=== PATIENT | female | born 1990 | race Caucasian/White ===

== ENCOUNTER 2019-07-30 14:27 | Outpatient (CLI) | payer OTHER, SELFPAY ==
--- NOTE | ~2019-07-30 | US_ITS ---
EXAMINATION: US OB <= 14 weeks fetus EXAM DATE: 07/30/2019 15:00 INDICATION: Dating. . 1st trimester. TECHNIQUE: Pelvic obstetrical transabdominal sonogram was performed by a technologist. There are mu ltiple grayscale and Doppler images available for interpretation. There are no earlier studies of th is gestation for comparison. FINDINGS: Uterus measures 7.9 x 5.7 x 8.2 cm. There is intrauterine gestation sac. pole with heart rate confirmed at 182 beats per minute. The 2.1 cm crown-rump length corresponds to estimated gestational age by ultrasound of 8 weeks 5 days, estimated date of confinement 03/05/2020. Yolk sac is identified. There is no sonographic evidence of subchorionic hemorrhage. Right ovary is morpholo gically normal, left is not identified. IMPRESSION: Early live intrauterine gestation, age by ultrasound 8 weeks 5 days with DWAYNE 03/05/2020 Reviewed, dictated and finalized at location A. IMPRESSION: Early live intrauterine gestation, age by ultrasound 8 weeks 5 day s with DWAYNE 03/05/2020
== END 2019-07-30 14:28 | disposition home or self-care (01) ==
LOC: ANHIMG 14:32
PROVIDERS: Visit Provider Obstetrics & Gynecology
DX: Z32.01 Encounter for pregnancy test, result positive (principal); Z3A.08 8 weeks gestation of pregnancy
CPT/HCPCS: 76801

== ENCOUNTER 2019-10-02 10:22 | Outpatient (CLI) | payer OTHER, SELFPAY ==
--- NOTE | ~2019-10-02 | US_ITS ---
EXAMINATION: US OB /maternal detail DATE: 10/02/2019 12:38 INDICATION: Second trimester anatomic survey TECHNIQUE: Real-time ultrasound of the pelvis was performed. COMPARISON: None. FINDINGS: There is a single living fetus in breech presentation. The placenta is anterior. heart rate is 145 beats per minute (bpm). cardiac activity and movement are noted. The amniotic fluid index is subjectively normal. The following anatomy was identified as normal: 4 chamber heart 3 vessel cord cord insertion kidneys urinary bladder stomach spine diaphragm ventricles cisterna magna cerebellum The following biometric data were obtained: Biparietal diameter (BPD): 4.3 cm; head circumference (HC): 16.3 cm; abdominal circumference (AC): 13 .8 cm; femur length (FL): 2.6 cm. These measurements are concordant. Estimated weight is 252 g +/- 37 g, which correlates with the 90th percentile when 03/05/2020 is used as estimated date of delivery. As single measurements, these parameters are each equal to the following estimated gestational ages w ith ranges of +/- 2 standard deviations: BPD: 19 weeks 0 days +/- 1 weeks 5 days. HC: 19 weeks 1 days +/- 1 weeks 3 days. AC: 19 weeks 2 days +/- 2 weeks 0 days. FL: 17 weeks 6 days +/- 1 weeks 3 days. estimated gestational age based solely on measurements from this exam is 18 weeks 6 days +/- 1 weeks 2 days. IMPRESSION: 1. Single living fetus in breech presentation. 2. Estimated weight is 252 g +/- 37 g, which correlates with the 90th percentile when 03/05/2020 is used as estimated date of delivery. Reviewed, dictated and finalized at location A. IMPRESSION: 1. Single living fetus in breech presentation. 2. Estimated weight is 252 g +/- 37 g, which correlates with the 90th per centile when 03/05/2020 is used as estimated date of delivery.
== END 2019-10-02 10:23 | disposition home or self-care (01) ==
PROVIDERS: Visit Provider Obstetrics & Gynecology
DX: Z34.02 Encounter for supervision of normal first pregnancy, second trimester (principal); Z3A.18 18 weeks gestation of pregnancy
CPT/HCPCS: 76805

== ENCOUNTER 2019-12-06 14:05 | Outpatient (RCR) | payer OTHER, SELFPAY ==
[2019-12-06 15:57] LABS: Hematocrit 36.2 % (37.0-47.0); Hemoglobin 12.2 g/dL (12.0-15.0)
[2019-12-06 16:07] LABS: Glucose 1 Hour PP 50gm Dose 192 mg/dL
[2019-12-06 16:48] LABS: HIV 1/2 Ab P24 Ag Result Negative (Negative)
[2019-12-06 17:22] LABS: Vitamin D 25 Hydroxy 58.1 ng/mL
[2019-12-07] MEDS: RHO(D) IMMUNE GLOBULIN 300 MCG SYRINGE IM (10:34)
== END 2020-03-05 23:59 | disposition home or self-care (01) ==
LOC: ANHLAB 14:05
PROVIDERS: PCP Obstetrics & Gynecology; Visit Provider Obstetrics & Gynecology
DX: Z29.13 Encounter for prophylactic Rho(D) immune globulin (principal); Z11.4 Encounter for screening for human immunodeficiency virus [HIV]; O36.0920 Maternal care for other rhesus isoimmunization, second trimester, not applicable or unspecified; Z3A.00 Weeks of gestation of pregnancy not specified
CPT/HCPCS: 36415; 82306; 82947; 85014; 85018; 85461; 86703; 90384; 96372; G0432; J2790

== ENCOUNTER 2019-12-16 15:16 | Outpatient (CLI) | payer OTHER, SELFPAY ==
--- NOTE | ~2019-12-16 | US_ITS ---
EXAMINATION: US OB follow up EXAM DATE: 12/16/2019 16:04 INDICATION: Growth , PIERO . Size greater than dates. 3rd trimester. TECHNIQUE: Pelvic obstetrical transabdominal sonogram was performed by a technologist. There are mu ltiple grayscale and Doppler images available for interpretation. Comparison is made to prior examina tion from 10/02/2019. FINDINGS: There is a single fetus identified in vertex presentation with a heart rate of 154 beats pe r minute. The placenta is located in the anterior fundal position. There is no sonographic evidence of retroplacental hemorrhage identified. The amniotic fluid index is 18.0 centimeters, which is denae l. BIOMETRIC DATA: Head circumference (HC): 27.8 cm ----------------> 30 weeks 3 days. Abdominal circumference (AC): 26.3 cm ----------> 30 weeks 3 days. Femur length (FL): 5.4 cm --------------------------> 28 weeks 4 days. These measurements are concordant. HC/AC ratio is 1.06 (The 5th -- 95th percentile range is 0.98-1.19. Estimated weight is 1458 g +/- 219 g. This is the 82nd percentile when the currently reported clinical gestation age 28 weeks 4 days, clinical estimated date of delivery (DWAYNE-OPE) 03/05/2020 is use d. estimated gestational age based on measurements from this exam is 29 weeks 6 days, with an e stimated date of delivery (DWAYNE-AUA) 02/25/2020. IMPRESSION: 1. Single fetus in vertex presentation with heart rate 154 beats per minute. 2. Estimated weight of 1458 grams, 82nd percentile using the currently reported clinical gesta tion age of 20 weeks 4 days, DWAYNE(OPE) 03/05. 3. Normal PIERO 18 cm. Reviewed, dictated and finalized at location A. IMPRESSION: 1. Single fetus in vertex presentation with heart rate 154 beats per minute. 2. Estimated weight of 1458 grams, 82nd percentile using the currently r eported clinical gestation age of 20 weeks 4 days, DWAYNE(OPE) 03/05. 3. Normal PIERO 18 cm.
== END 2019-12-16 15:17 | disposition home or self-care (01) ==
PROVIDERS: Visit Provider Obstetrics & Gynecology Gynecology
DX: O36.62X0 Maternal care for excessive fetal growth, second trimester, not applicable or unspecified (principal); Z3A.20 20 weeks gestation of pregnancy
CPT/HCPCS: 76816

== ENCOUNTER → 2020-02-07 15:24 | Outpatient (CLI) | payer OTHER, SELFPAY ==
--- NOTE | ~2020-02-07 | US_ITS ---
EXAMINATION: US OB follow up DATE: 02/07/2020 15:47 INDICATION: Size greater than dates during third trimester TECHNIQUE: Real-time ultrasound of the pelvis was performed. The interpreting radiologist was not pre sent for the study. COMPARISON: 12/16/2019 FINDINGS: There is a single living fetus in vertex presentation. The placenta is anterior. card iac activity and movement are noted. heart rate is 151 beats per minute (bpm). The amniot ic fluid index is 22.9 cm which is normal. The following biometric data were obtained: Biparietal diameter (BPD): 9.7 cm; head circumference (HC): 34.6 cm; abdominal circumference (AC): 33 .7 cm; femur length (FL): 7.3 cm. These measurements are concordant. Estimated weight is 3428 g +/- 514 g, which correlates with the 95th percentile when 03/05/2020 i s used as estimated date of delivery. As single measurements, these parameters are each equal to the following estimated gestational ages w ith ranges of +/- 2 standard deviations: BPD: 39 weeks 6 days ( 36 weeks 5 days - 43 weeks 1 days). HC: 40 weeks 1 days ( 37 weeks 3 days - 42 weeks 6 days). AC: 37 weeks 5 days ( 34 weeks 4 days - 40 weeks 5 days). FL: 37 weeks 5 days ( 34 weeks 4 days - 40 weeks 6 days). estimated gestational age based solely on measurements from this exam is 38 weeks 6 days +/- 2 weeks 5 days. IMPRESSION: 1. Single living fetus in vertex presentation. 2. Normal amniotic fluid index. 3. Estimated weight is 3428 g +/- 514 g, which correlates with the 95th percentile when 1 is used as estimated date of delivery. Reviewed, dictated and finalized at location A. [employer] IMPRESSION: 1. Single living fetus in vertex presentation. 2. Normal amniotic fluid index. 3. Estimated weight is 3428 g +/- 514 g, which correlates with the 95th p ercentile when 03/05/2020 is used as estimated date of delivery.
== END ==
PROVIDERS: Visit Provider Obstetrics & Gynecology
DX: O36.63X0 Maternal care for excessive fetal growth, third trimester, not applicable or unspecified (principal); Z3A.38 38 weeks gestation of pregnancy
CPT/HCPCS: 76816

== ENCOUNTER 2020-02-16 12:44 | Outpatient (RCR) | payer OTHER, SELFPAY ==
[2020-01-23 09:36] VITALS: BP 121/78; PULSE 92
[2020-02-16 13:14] VITALS: BP 116/76; PULSE 78
== END 2020-03-02 07:53 | disposition home or self-care (01) ==
LOC: ANHOBOP 12:44
PROVIDERS: Visit Provider Obstetrics & Gynecology
DX: O24.419 Gestational diabetes mellitus in pregnancy, unspecified control (principal); Z3A.34 34 weeks gestation of pregnancy; Z3A.37 37 weeks gestation of pregnancy
CPT/HCPCS: 59025

== ENCOUNTER 2020-02-27 06:00 | Inpatient (IN) | payer OTHER, SELFPAY ==
[2020-02-27] VITALS (92 sets, daily range): BP systolic 114–157; BP diastolic 62–122; PULSE 31–140; RESP 18; TEMP 36.4–37; O2SAT 72–100; BMI 33.2
--- NOTE | 2020-02-27 06:00 | LDADM ---
This patient, Karen Perez, was admitted to Labor/Delivery/Recovery 104 on 02/27/20 at 06:00. Plans for labor, pain management and were discussed with patient. Patient/family oriented to hospital policies and general routines including ID bracelet, bed and alarms, visiting hours, pain management, procedures, bathroom and other care routines, personal items, smoking policy, room service/diet and guest tray routines, infant security routines, and visiting hours. Patient/Family are encouraged to report perceived risks to care and to ask questions if they do not understand what they are told or what they should do. See OBIX for further documentation.
[2020-02-27 06:44] LABS: Basophils Percent Auto 0.3 % (0.2-1.2); Eosinophils Absolute Auto 0.2 K/mm3 (0-0.3); Eosinophils Percent Auto 1.3 % (0-4.4); Hematocrit 37.3 % (37.0-47.0); Hemoglobin 13.1 g/dL (12.0-15.0); Immature Granulocyte Absolute 0.05 K/mm3 (0.00-0.031); Immature Granulocyte Percent A 0.4 % (0-0.5); Lymphocytes Percent Auto 22.2 % (18.3-44.2); Mean Corpuscular HGB Conc 35.1 g/dl (32-36); Mean Corpuscular Volume 85.4 fl (80-100); Mean Platelet Volume 10.2 fl (7.4-10.4); Monocytes Absolute Auto 0.8 K/mm3 (0.1-0.6); Monocytes Percent Auto 6.7 % (2.6-8.5); Neutrophils Absolute Auto 8.1 K/mm3 (1.3-6.7); Neutrophils Percent Auto 69.1 % (45.5-73.1); Platelet Count Result 280 k/mm3 (150-375); Red Blood Count 4.37 M/mm3 (4.2-5.4); Red Cell Distribution Width 13.4 % (11.5-14.5); White Blood Count 11.7 K/mm3 (4.5-10.0)
[2020-02-27] MEDS: LACTATED RINGERS 1,000 ML 125 ML IV CONT ×2 (06:53→11:00)
[2020-02-27] MEDS: OXYTOCIN 30 UNITS/NS 500 ML 30 UNITS/500 ML BAG 6 UNITS IV CONT (06:54)
--- NOTE | 2020-02-27 07:06 | P.PNAN_ITS ---
Anes - Eval Pre Procedure Procedure: labor epidural Date/Time: 02/27/20 07:06 Preop Diagnosis: labor pain Pre Op Diagnosis: Induction of Labor Patient Data Age: 29 Gender: F Height: 5 ft 8 in Weight: 99 kg Last Vital Signs Temp 36.6 C 02/27/20 06:30 Pulse 93 02/27/20 07:00 BP 126/85 02/27/20 07:00 Allergies Allergy/AdvReac Type Severity Reaction Status Date / Time No Known Allergies Allergy Verified 02/03/20 14:29 Home Medications Medication Instructions Recorded Confirmed Type PNV cmb#95-ferrous fumarate-FA 1 tablet PO DAILY 02/03/20 02/27/20 History [] ergocalciferol (vitamin D2) 1,250 mcg PO 2XW 02/03/20 02/27/20 History [Vitamin D2] insulin NPH isoph U-100 human 6 unit SUBCUT HS 02/03/20 02/27/20 History [Humulin N NPH U-100 Insulin] Laboratory Tests 02/27/20 02/27/20 06:32 06:32 WBC 11.7 K/mm3 H K/mm3 (4.5-10.0) RBC 4.37 M/mm3 M/mm3 (4.2-5.4) Hgb 13.1 g/dL g/dL (12.0-15.0) Hct 37.3 % % (37.0-47.0) MCV 85.4 fl fl (80-100) MCH 30.0 pg pg (26-34) MCHC 35.1 g/dl g/dl (32-36) RDW 13.4 % % (11.5-14.5) Plt Count 280 k/mm3 k/mm3 (150-375) MPV 10.2 fl fl (7.4-10.4) Immature Gran % (Auto) 0.4 % % (0-0.5) Neut % (Auto) 69.1 % % (45.5-73.1) Lymph % (Auto) 22.2 % % (18.3-44.2) [place] % (Auto) 6.7 % % (2.6-8.5) Eos % (Auto) 1.3 % % (0-4.4) Baso % (Auto) 0.3 % % (0.2-1.2) Lymph # (Auto) 2.60 K/mm3 K/mm3 (0.9-3.2) [place] # (Auto) 0.8 K/mm3 H K/mm3 (0.1-0.6) Eos # (Auto) 0.2 K/mm3 K/mm3 (0-0.3) Baso # (Auto) 0.0 K/mm3 K/mm3 (0.0-0.1) Abs Immat Gran (auto) 0.05 K/mm3 H K/mm3 (0.00-0.031) Absolute Neuts (auto) 8.1 K/mm3 H K/mm3 (1.3-6.7) Absolute Nucleated RBC 0.0 K/mm3 K/mm3 (0.0-0.012) Nucleated RBC % 0.0 % % (0.0-0.2) RPR Pending Patient hx anesthesia problems: none Family hx anesthesia problems: none PMFSH Family History Family History (Updated 02/03/20 @ 14:32 by Delfina Calvin RN) Father Heart attack Mother Cervical cancer Social History Social History Smoking status: Never smoker Substance use: never Gender identity (if verbalized by the patient): Female Spiritual care concerns: No Exam Day of Procedure 02/27/20 07:06
[2020-02-27 09:12] LABS: Glucose Point of Care 76 (65-105)
--- NOTE | 2020-02-27 09:59 | WPDOBADMIT ---
Obstetrics - Admit Note Admission Note: 0815 AROm clear fluid 1-2 cm record reviewed. No pertinent additions to the history and/or any subsequent changes in the physical findings that are not consistent with the expected course of the were found. Additions to the history and/or subsequent changes in the physical findings follow. None.
[2020-02-27 11:13] LABS: Rapid Plasma Reagin Non-Reactive (NonReactive)
[2020-02-27 11:38] LABS: Glucose Point of Care 78 (65-105)
[2020-02-27 13:00] LABS: Glucose Point of Care 54 (65-105)
[2020-02-27] MEDS: OXYTOCIN 30 UNITS/NS 500 ML 30 UNITS/500 ML BAG 125 UNITS IV CONT (15:11)
[2020-02-27] MEDS: IBUPROFEN 600 MG TABLET PO (16:29)
[2020-02-27] MEDS: BENZOCAINE 20% AER SPR (*SP) 56 GM CAN 1 SPRAY TOPICAL (16:30)
[2020-02-27] MEDS: WITCH HAZEL 40 PADS 1 PAD TOPICAL (16:30)
[2020-02-27] MEDS: LANOLIN (LANSINOH) 7.5 GM CREAM 1 APPLIC TOPICAL (16:30)
--- NOTE | 2020-02-27 17:30 | PC.NURSE ---
Patient transferred to post room #286 per wheelchair from labor and delivery. Support person present. Oriented to unit, room, information board, rooming in, admission packet and security measures. Patient verbalizes understanding.
[2020-02-28 05:30] LABS: Hematocrit 32.3 % (37.0-47.0); Hemoglobin 11.1 g/dL (12.0-15.0)
--- NOTE | 2020-02-28 07:45 | PC.NURSE ---
Patient instructed to view the discharge video Mother & Baby Care, The First Two Weeks . Patient was given the opportunity and encouraged to ask questions. Patient verbalized understanding of information shared and has been given the mother/baby guide for home reference.
[2020-02-28] MEDS: DOCUSATE SODIUM 100 MG CAPSULE PO (07:48)
[2020-02-28] MEDS: MULTIVIT/MIN/PREN/FOL AC/IRON TABLET 1 TAB PO (07:48)
[2020-02-28] MEDS: IBUPROFEN 600 MG TABLET PO (07:48)
[2020-02-28 08:10] VITALS: BP 128/80; PULSE 87; RESP 18; TEMP 36.4
--- NOTE | 2020-02-28 09:44 | PM.OBPNVD ---
OB - PN: Subj Subjective Date/time seen: 02/28/20 09:44 Patient comments: no complaints and pain well controlled baby status: doing well OB - PN: Obj Data Labs CBC & Chem 7: 02/28/20 05:02 Labs: Laboratory Results - last 24 hr 02/27/20 02/27/20 02/27/20 06:32 06:32 11:06 Hgb Hct POC Capillary Glucose 78 RPR Non-reactive Antibody Identification Inconclusive Antigen Identification Cancelled ELIGIO, Complement Interp Not Performed 02/27/20 02/28/20 12:54 05:02 Hgb 11.1 L Hct 32.3 L POC Capillary Glucose 54 L* RPR Antibody Identification Antigen Identification ELIGIO, Complement Interp OB - PN A/P Plan day: 1 Plan: routine care, discharge home and follow up 6 weeks Comments: plan micronor until Mirena Time Spent With Patient Time: Total time spent is greater than 50% in coordination of care (as documented) at patient's floor/unit and/or counseling patient: Exam : Bimanual exam- vagina & uterus: other (Uterus firm, nt @U)
--- NOTE | 2020-02-28 10:38 | WPDANLDPN2 ---
Anes-Prog Note L&D Date/Time: 02/28/20 10:38 Comfortable throughout: labor and delivery Neuraxial method: epidural Epidural/Spinal procedure site: clean & non-tender Neuro status: Neuro function grossly intact. Cardiovascular status: normal Respiratory status: normal Airway patency: baseline Mental status: baseline Post-Op hydration status: normal Vital Signs: Last Vital Signs Temp 36.4 C 02/27/20 20:00 Pulse 78 02/27/20 20:00 Resp 18 02/27/20 20:00 BP 132/86 02/27/20 20:00 Pulse Ox 98 02/27/20 20:00 Pain score (VAS): 0 I/O: Intake & Output 02/27/20 02/28/20 02/28/20 23:59 07:59 15:59 Intake Total 300 Output Total 84 Balance 216 Post-procedural complaints: none Patient feedback: Patient satisfied with anesthetic care.
[2020-02-29 15:05] VITALS: BP 126/80; PULSE 90; RESP 15; TEMP 36.8; O2SAT 100
--- NOTE | 2020-03-09 08:29 | PM.OBPRVD ---
OB - Delivery Note Procedure Delivery date: 02/27/20 Procedure: events: Labor Induction Intrapartal events: None Induction method: AROM and per pitocin protocol Delivery monitor: external FHT and external uterine Route of delivery: Laceration Description: Perineal - 2nd Degree Delivery repair: vicryl Quantitative Blood Loss (ml): 200 Anesthesia type: Epidural Disposition: floor [place] Baby Date of : 02/27/20 Time of : 00:50 Weeks of gestation at delivery: 39 Infant gender: Male Weight (pounds): 8 Weight (ounces): 5 presentation: vertex position: Left Occiput Anterior Placenta delivery description: Spontaneous cord vessel description: 3 Vessels score one minute: 9 score five minutes: 9
--- NOTE | 2020-03-09 08:31 | PM.OBDSVD ---
DS: Admitting Diagnosis Admitting Diagnosis Admitting Diagnosis: induction of labor DS: Discharge Diagnosis Discharge Diagnosis (1) (normal spontaneous vaginal delivery): Code(s): O80 - Encounter for full-term uncomplicated delivery Status: Acute OB - DS: Summary OB Procedures : Ultrasound OB Procedures Intrapartum: Spontaneous Vag Delivery OB Procedures: : None Time Spent with Patient Time attestation: Total time spent providing and/or coordinating discharge services: DS: Data Data Completed and Pending Completed studies during hospitalization: Pending at discharge 02/27/20 14:43 Surgical [PTH] Routine Discharge Plan Discharge Attending physician on discharge: Ian Montenegro Discharging Clinician: Ian Montenegro Anticipated Discharge Date/Time: 02/28/20 09:46 Patient Disposition: Home, Self-Care Activity: may shower and pelvic rest Diet: regular Discharge Instructions: Education: Mom and Baby Guide, Preeclampsia Handout, and discharge video info Given to: Mother Follow-Up: Call your delivering provider's office for an appointment to be seen in: 6 Weeks Mom and baby should come to the [facility] for the follow-up appointment. Appointment Date/Time: February 29, 2020 at 2:30 pm What to expect at your follow-up visit: Physical Assessment Call [phone] if you are unable to keep your appointment time. BREAST CARE: * Wear a snug supportive bra. * For engorgement discomfort: Breast Feeding: * Apply warm moist washcloths * Express milk as needed to relieve engorgement * Wear loose clothing * For sore nipples: * Identify correct latch-on * Apply warm moist washcloths before and after nursing * Air dry nipples after nursing * May apply Lansinoh cream to nipples EPISIOTOMY/PERINEAL CARE: * Until bleeding stops, use your horacio bottle after urinating * Change your pad frequently throughout the day * You may take sitz baths several times a day (fill your bathtub with warm water and soak for 20 minutes.) Do NOT bathe in the water * No tub baths until seen by your physician - You may shower ACTIVITY: * Rest as much as possible. * Do not exercise or lift anything heavier than your baby (such as laundry or other children.) * Avoid stairs or driving as much as possible. * Do not put anything into the vagina. No douching, tampons, or sexual activity until seen by physician. NOTIFY PHYSICIAN IF YOU HAVE ANY QUESTIONS OR IF ANY OF THE FOLLOWING SYMPTOMS OCCUR: * If your episiotomy or incision becomes red, swollen, or more painful than what you have experienced in the hospital. * If your vaginal bleeding becomes foul smelling. * If your vaginal bleeding becomes more heavy than a period or if your bleeding changes from pink to bright red. However, you may pass an occasional walnut-sized clot once or twice for the first week . * If you experience a sharp, shooting pain in you calves. * If you discover a hard, reddened area on your breast or if you experience flu-like symptoms. DIET: * Eat regular, well-balanced meals. * Drink plenty of fluids daily. If , drink to thirst. Stand Alone Forms: General Discharge Information Follow-up/Referrals: Ian Montenegro MD [Physician] - 6 Weeks Discharge Medications: New norethindrone (contraceptive) 0.35 mg tablet 0.35 mg PO DAILY Qty: 28 RF: 1 Continued ergocalciferol (vitamin D2) [Vitamin D2] 1,250 mcg (50,000 unit) Capsule 1,250 mcg PO 2XW RF: 0 PNV cmb#95-ferrous fumarate-FA [] 28 mg iron- 800 mcg Tablet 1 tablet PO DAILY RF: 0 Discontinued Humulin N NPH U-100 Insulin 100 unit/mL Suspension 6 unit SUBCUT HS RF: 0 Date of admission: 02/27/20 06:00 Primary Care Provider: PHYSICIAN,[employer] CLAIMS ADJUSTER Admitting Provider: Ian Montenegro Attending physi
== END 2020-02-28 17:52 | disposition home or self-care (01) | DRG 807 ==
LOC: ANHOB2 02-28 09:47 → ANHLDR 03-03 10:05 → ANHOB2 03-03 10:05
PROVIDERS: Admitting Provider Obstetrics & Gynecology; Visit Provider Obstetrics & Gynecology Gynecology
DX: O24.429 Gestational diabetes mellitus in childbirth, unspecified control (principal); Z37.0 Single live birth; O76 Abnormality in fetal heart rate and rhythm complicating labor and delivery; O70.1 Second degree perineal laceration during delivery; Z3A.39 39 weeks gestation of pregnancy
CPT/HCPCS: 36415; 85014; 85018; 85025; 86592; 86850; 86880; 86900; 86901; 88307; A9270; J2590; J2795; J7120

== ENCOUNTER 2021-04-09 12:14 | Emergency (ER) | payer OTHER, SELFPAY ==
[2021-04-09 12:29] VITALS: BP 134/94; PULSE 98; RESP 18; TEMP 36.7; O2SAT 100
--- NOTE | 2021-04-09 12:34 | ED.EAR ---
HPI - Ear Problem General Chief complaint: Ear Stated complaint: Sinus,Lt Ear Irritation Time Seen by Provider: 04/09/21 12:34 Source: patient Mode of arrival: ambulatory Limitations: no limitations History of Present Illness HPI Narrative: Karen Perez is a 30 yo female with no PMH who has had respiratory symptoms for the last week or so with pain in her left ear no fever no nausea vomiting or diarrhea Related Data Home Medications Medication Instructions Recorded Confirmed ergocalciferol (vitamin D2) 1,250 mcg PO 2XW 02/03/20 04/09/21 [Vitamin D2] levonorgestrel [Mirena] See Rx Instructions .ROUTE .COMPLEX 04/09/21 04/09/21 Allergies Allergy/AdvReac Type Severity Reaction Status Date / Time No Known Allergies Allergy Verified 04/09/21 12:17 Review of Systems Review of Systems: CONSTITUTIONAL: Denies fever, chills, sweats. EYES: Denies visual changes, redness, discharge. ENT: Denies rhinorrhea, mild congestion, sore throat, left otalgia. CARDIOVASCULAR: Denies chest pain, palpitations, edema. RESPIRATORY: Denies dyspnea, wheezing, cough GASTROINTESTINAL: Denies abdominal pain, nausea, vomiting, diarrhea. GENITOURINARY: Denies dysuria, hematuria, abnormal discharge SKIN: Denies rash or itching. NEUROLOGIC: Denies numbness, or focal weakness. PSYCHIATRIC: Denies anxiety or depression. PMFSH Past Medical History Medical History (normal spontaneous vaginal delivery) Family History Family History Father Heart attack Mother Cervical cancer Social History Social History Smoking status: Never smoker Substance use: never Gender identity (if verbalized by the patient): Female Spiritual care concerns: No Comments At time of signature, I agree with nursing past medical, surgical, social and family history. There is no relevant family history pertinent to the presenting complaint. Patient's blood pressure elevated at this visit should follow-up with PCP Exam Narrative: GENERAL: This is a well-nourished, well-developed patient, in mild distress. HEAD: normocephalic, atraumatic. EYES: PERRL. Sclera clear/white. Vision is grossly intact. EARS: External ears normal, auditory canals leftand with drainage, TMs normal without perforation. Hearing grossly intact. NOSE: External nose normal without nasal discharge, nares without redness, as rhinorrhea. THROAT: Mucous membranes moist, posterior pharynx mild erythema NECK: Neck supple, non-tender CARDIOVASCULAR: Regular rate and rhythm without murmurs, gallops, or rubs. RESPIRATORY: Clear to auscultation. Breath sounds equal bilaterally. No wheezes, rales, or rhonchi. GASTROINTESTINAL: Not done SKIN: warm, intact with no suspicious lesions or rash, good texture and turgor. NEURO: awake, alert, and oriented to person, place and time. There were no obvious focal neurologic abnormalities. Steady gait EXTREMITIES: Normal range of motion. BACK: Nontender without deformity Course Course Emergency Course: Patient here with runny nose and left ear pain going on for couple days Because of the appearance of her ear she started on polymyxin eardrops and also amoxicillin 875 twice daily Level of Care: Express Care Visit Vital Signs Vital signs: Vital Signs Temperature 98.1 F 04/09/21 12:29 Pulse Rate 98 04/09/21 12:29 Respiratory Rate 18 04/09/21 12:29 Blood Pressure 134/94 H 04/09/21 12:29 Pulse Oximetry 100 04/09/21 12:29 Temperature 98.1 F 04/09/21 12:29 Pulse Rate 98 04/09/21 12:29 Respiratory Rate 18 04/09/21 12:29 Blood Pressure 134/94 H 04/09/21 12:29 Pulse Oximetry 100 04/09/21 12:29 Medical Decision Making Differential Diagnosis Differential Diagnosis: Otitis media versus pharyngitis versus viral syndrome Vital Signs Vital Signs: Vital
== END 2021-04-09 12:58 | disposition home or self-care (01) ==
PROVIDERS: Emergency Provider Nurse Practitioner
DX: H65.02 Acute serous otitis media, left ear (principal)
CPT/HCPCS: 99213; G0463

== ENCOUNTER 2021-07-27 10:42 | Emergency (ER) | payer OTHER, SELFPAY ==
[2021-07-27 10:53] VITALS: BP 133/91; PULSE 90; RESP 18; TEMP 36.3; O2SAT 100
--- NOTE | 2021-07-27 11:09 | ED.EAR ---
HPI - Ear Problem General Chief complaint: Ear Stated complaint: Rt Ear Irritation Time Seen by Provider: 07/27/21 11:19 Source: patient and RN notes reviewed Mode of arrival: ambulatory Limitations: no limitations History of Present Illness HPI Narrative: 31-year-old female presents with concern for right ear pain. She reports symptoms started 4 days ago, she has noticed drainage on her pillow. She reports her pain occasionally radiates to the jaw. She denies rhinorrhea, nasal congestion, sore throat, fever, body aches, chills, sweats, cough. Reports she had an ear infection in March in the left ear. MD Complaint: ear pain Related Data Home Medications Medication Instructions Recorded Confirmed levonorgestrel 20 mcg/24 hours (7 See Rx Instructions .Route .COMPLEX 04/09/21 07/27/21 yrs) 52 mg intrauterine device (Mirena) Allergies Allergy/AdvReac Type Severity Reaction Status Date / Time No Known Allergies Allergy Verified 07/27/21 11:18 Review of Systems Review of Systems: CONSTITUTIONAL: Denies malaise, chills, sweats, or fever. EYES: Denies visual changes, redness, or discharge. ENT: Denies rhinorrhea, congestion, sinus pain, and sore throat. Reports right ear pain and drainage CARDIOVASCULAR: Denies chest pain, palpitations, or edema. RESPIRATORY: Denies cough. Denies dyspnea. GASTROINTESTINAL: Denies abdominal pain, nausea, vomiting, diarrhea SKIN: Denies rash or itching. MUSCULOSKELETAL: Denies myalgia. NEUROLOGIC: Denies headache. All systems reviewed & are unremarkable except as noted in HPI and below PMFSH Past Medical History Medical History (normal spontaneous vaginal delivery) Family History Family History Father Heart attack Mother Cervical cancer Social History Social History Smoking status: Never smoker Substance use: never Gender identity (if verbalized by the patient): Female Spiritual care concerns: No Comments At time of signature, agree with nursing past medical, surgical, social and family history. There is no relevant family history pertinent to the presenting complaint Exam Narrative: GENERAL: Well-appearing, well-nourished, and in no acute distress. HEAD: Normocephalic EYES: PERRLA, conjunctivae clear ENT: Nares clear, turbinates edematous, clear discharge. Mucous membranes moist. TM pearly corona with sharp light reflex bilaterally; right tragal tenderness with EAC erythema, edema, yellow discharge. NECK: Supple. No lymphadenopathy CHEST: Clear to auscultation, breath sounds equal. No wheezing, rhonchi, rales, or stridor. No respiratory distress, speaks in full sentences. HEART: Regular rate and rhythm. No murmur heard. SKIN: Warm, dry, no rash. NEURO: Alert and oriented x3. PSYCH: Normal mood and affect Course Course Emergency Course: Patient is aware of diagnosis, understands and agrees to treatment plan. Anticipatory guidance given. Patient agrees to follow-up as directed and is aware of reasons to seek care at the emergency department. Portions of this record may have been created with voice recognition software Level of Care: Express Care Visit Vital Signs Vital signs: Vital Signs Temperature 97.4 F L 07/27/21 10:53 Pulse Rate 90 07/27/21 10:53 Respiratory Rate 18 07/27/21 10:53 Blood Pressure 133/91 H 07/27/21 10:53 Pulse Oximetry 100 07/27/21 10:53 Oxygen Delivery Room Air 07/27/21 10:53 Temperature 97.4 F L 07/27/21 10:53 Pulse Rate 90 07/27/21 10:53 Respiratory Rate 18 07/27/21 10:53 Blood Pressure 133/91 H 07/27/21 10:53 Pulse Oximetry 100 07/27/21 10:53 Oxygen Delivery Room Air 07/27/21 10:53 Reviewed. Medical Decision Making MDM Narrative Medical decision making narrative: Differential diagnosis considered: Fishman virus
== END 2021-07-27 11:36 | disposition home or self-care (01) ==
PROVIDERS: Emergency Provider Nurse Practitioner
DX: H60.91 Unspecified otitis externa, right ear (principal)
CPT/HCPCS: 99213; G0463

== ENCOUNTER 2022-05-12 08:32 | Emergency (ER) | payer OTHER, SELFPAY ==
[2022-05-12 08:47] VITALS: BP 124/87; PULSE 115; RESP 14; TEMP 36.3; O2SAT 100
--- NOTE | 2022-05-12 08:50 | ED.URI ---
HPI - URI/Sore Throat General Chief Complaint: Upper Respiratory Infection Stated Complaint: Sore Throat,Body Aches Time Seen by Provider: 05/12/22 08:50 Source: patient, RN notes reviewed and old records reviewed Mode of arrival: ambulatory Limitations: no limitations History of Present Illness HPI Narrative: 31 year old female who presents to doctors hospital care with complaints of sore throat, chills,sinus drainage and decreased appetite since Monday. She reports that she has had some dry cough for about 2 week duration also. Patient reports that she has not had any known fevers, had taken some Me[place] cold and flu medication OTC for her symptoms. Patient reports that she has had COVID immunizations and also flu shot. Patient reports no known ill contacts. MD elicited complaint: cough and sore throat Onset (ago): day(s) (day 3 of symptoms) Pain scale (0-10): 3 Able to tolerate fluids by mouth: Yes Exacerbating factors: swallowing Treatments prior to arrival: other (melina seltzer cold and flu) Related Data Home Medications Medication Instructions Recorded Confirmed levonorgestrel 21 mcg/24 hours (8 See Rx Instructions .Route .COMPLEX 04/09/21 05/12/22 yrs) 52 mg intrauterine device (Mirena) Allergies Allergy/AdvReac Type Severity Reaction Status Date / Time No Known Allergies Allergy Verified 05/12/22 08:57 Review of Systems Review of Systems: CONSTITUTIONAL: Reports malaise, chills, sweats, no known fever. EYES: Denies visual changes, redness, or discharge. ENT: Reports rhinorrhea, congestion,no sinus pain,fullness to ears, positive sore throat. CARDIOVASCULAR: Denies chest pain, palpitations, or edema. RESPIRATORY: Reports dry cough.? Denies dyspnea. GASTROINTESTINAL: Denies abdominal pain, nausea, vomiting, diarrhea SKIN: Denies rash or itching. MUSCULOSKELETAL: Reports myalgia. NEUROLOGIC: Denies headache. All systems reviewed & are unremarkable except as noted in HPI and below PMFSH Past Medical History Medical History (normal spontaneous vaginal delivery) Family History Family History Father Heart attack Mother Cervical cancer Social History Social History Smoking status: Never smoker Substance use: never Gender identity (if verbalized by the patient): Female Spiritual care concerns: No Comments At time of signature, agree with nursing past medical, surgical, social and family history. There is no relevant family history pertinent to the presenting complaint Exam Narrative: GENERAL: Well-appearing, well-nourished, and in no acute distress. HEAD: Normocephalic EYES: PERRLA, conjunctivae clear ENT: Nares clear, turbinates edematous and erythematous, clear discharge. Mucous membranes moist. TM pearly corona with dull light reflex bilaterally; no tragal tenderness. Oropharynx erythematous without lesions. Tonsils red enlarged and without exudate, no drooling, no hoarseness, no trismus, uvula midline. NECK: Supple. lymphadenopathy CHEST: Clear to auscultation, breath sounds equal. No wheezing, rhonchi, rales, or stridor. No respiratory distress, speaks in full sentences. dry cough, SAO2 100% on room air HEART: Regular rate and rhythm. No murmur heard. SKIN: Warm, dry, no rash. NEURO: Alert and oriented x3. PSYCH: Normal mood and affect Course Course Emergency Course: Patient is aware of diagnosis, understands and agrees to treatment plan.? Anticipatory guidance given.? Patient agrees to follow-up as directed and is aware of reasons to seek care at the emergency department. Portions of this record may have been created with voice recognition software Level of Care: Express Care Visit Vital Signs Vital signs: Vital Signs Temperature 36.3 C L 05/12/22 08:47 Pulse Rate 115 H
== END 2022-05-12 09:10 | disposition home or self-care (01) ==
PROVIDERS: Emergency Provider Registered Nurse
DX: J02.9 Acute pharyngitis, unspecified (principal); Z20.822 Contact with and (suspected) exposure to COVID-19
CPT/HCPCS: 87426; 87880; 99213; C9803; G0463

== ENCOUNTER → 2023-03-23 13:40 | Outpatient (CLI) | payer OTHER, SELFPAY ==
--- NOTE | ~2023-03-23 | US_ITS ---
EXAMINATION: US OB transvaginal DATE: 03/23/2023 14:10 INDICATION: Uncertain dates. TECHNIQUE: Real-time transvaginal pelvic ultrasound was performed. COMPARISON: None. FINDINGS: The uterus measures 7.7 x 5.0 x 6.4 cm. There is an intrauterine gestational sac. A yolk sac is ident ified. The crown rump length measures 5 mm, which correlates with an estimated gestational age of 6 weeks and 2 day(s) (+/-) 4 day(s). heart motion is identified measuring 120 beats per min [place] (bpm) by M-mode Doppler. There is a small subchorionic hematoma. The ovaries are not visualized. There is no free fluid in the pelvis. IMPRESSION: 1. Single living intrauterine gestation with estimated date of delivery of 11/14/2023. 2. Small subchorionic hematoma. Reviewed, dictated and finalized at location E. H UP PAINTER IMPRESSION: 1. Single living intrauterine gestation with estimated date of delivery of 10/28. 2. Small subchorionic hematoma.
== END ==
PROVIDERS: PCP Advanced Practice Midwife; Visit Provider Advanced Practice Midwife
DX: Z36.87 Encounter for antenatal screening for uncertain dates (principal); Z3A.00 Weeks of gestation of pregnancy not specified
CPT/HCPCS: 76817

== ENCOUNTER → 2023-04-24 12:46 | Outpatient (CLI) | payer OTHER, SELFPAY ==
--- NOTE | ~2023-04-24 | US_ITS ---
EXAMINATION: US OB limited DATE: 04/24/2023 13:08 INDICATION: Subchorionic hematoma during first trimester TECHNIQUE: Real-time pelvic transabdominal and transvaginal ultrasound was performed. COMPARISON: None. FINDINGS: The uterus measures 12.2 x 7.2 x 7.6 cm. There is an intrauterine gestational sac. No persi stent subchorionic hematoma is identified. A yolk sac is identified. heart motion is identified measuring 164 beats per minute (bpm) by M-mode Doppler. IMPRESSION: 1. No persistent subchorionic hematoma identified. Reviewed, dictated and finalized at location B. RAGE MANAGER
== END ==
PROVIDERS: PCP Advanced Practice Midwife; Visit Provider Advanced Practice Midwife
DX: O36.8910 Maternal care for other specified fetal problems, first trimester, not applicable or unspecified (principal); Z3A.00 Weeks of gestation of pregnancy not specified
CPT/HCPCS: 76815

== ENCOUNTER 2023-06-21 08:18 | Outpatient (CLI) | payer OTHER, SELFPAY ==
--- NOTE | ~2023-06-21 | US_ITS ---
EXAMINATION: US OB /maternal detail DATE: 06/21/2023 09:13 INDICATION: anatomic survey. TECHNIQUE: Real-time ultrasound of the pelvis was performed. COMPARISON: Ultrasound 04/24/23, 03/23/23 FINDINGS: There is a single living fetus in breech presentation. The placenta is posterior, 8.6 cm from the ce rvix. heart rate is 141 beats per minute (bpm). The amniotic fluid volume is subjectively denae l. The following biometric data were obtained: Biparietal diameter (BPD): 4.6 cm; head circumference (HC): 17.5 cm; abdominal circumference (AC): 15 .1 cm; femur length (FL): 3.0 cm. These measurements are concordant. Estimated weight is 378 g +/- 48 g, which correlates with the 85th percentile when 11/14/23 is u sed as estimated date of delivery. As single measurements, these parameters are each equal to the following estimated gestational ages: BPD: 19 weeks 6 days. HC: 20 weeks 0 days. AC: 20 weeks 3 days. FL: 19 weeks 2 days. estimated gestational age based solely on measurements from this exam is 19 weeks 6 days +/- 1 weeks 3 days. The cerebral ventricles, cerebellum, cisterna magna, nuchal fold, lip, and visualized portions of the spine are normal. The heart is normal. The diaphragm, stomach, kidneys, and bladder are normal. Ther e are two umbilical arteries to yield a 3-vessel cord. The cord insertion is normal. IMPRESSION: 1. Single living fetus in breech presentation. 2. Estimated weight is 378 g +/- 48 g, which correlates with the 85th percentile when 11/14/23 is used as estimated date of delivery. This date was set by ultrasound on 03/23/2023. 3. Normal anatomic survey. Reviewed, dictated and finalized at location E. IMPRESSION: 1. Single living fetus in breech presentation. 2. Estimated weight is 378 g +/- 48 g, which correlates with the 85th pe rcentile when 11/14/23 is used as estimated date of delivery. This date was set by ultrasound on 03/23/2023. 3. Normal anatomic survey.
== END 2023-06-21 08:19 ==
PROVIDERS: PCP Advanced Practice Midwife; Visit Provider Advanced Practice Midwife
DX: Z36.9 Encounter for antenatal screening, unspecified (principal); Z3A.19 19 weeks gestation of pregnancy
CPT/HCPCS: 76805

== ENCOUNTER 2023-08-08 09:28 | Outpatient (CLI) | payer OTHER, SELFPAY ==
--- NOTE | ~2023-08-08 | US_ITS ---
LIMITED OBSTETRIC ULTRASOUND/BIOPHYSICAL PROFILE Ordering provider: Martine Decker MD History: . Size greater than dates . Comparison: None. FINDINGS/impression: PRESENTATION: Breech. Gestational age is 28 weeks. DWAYNE is October 31, 2023 PLACENTAL LOCATION: Posterior fundal. No previa. Distance to the cervix is out of range. HEART RATE: 149 bpm (normal is between 110 to 160 bpm). AMNIOTIC FLUID INDEX: 22.6 cm. Largest vertical pocket is 5.9 cm. normal (PIERO between 5-25 cm in fro m 20-35 weeks gestation is considered normal). Estimated weight is 1165 gm OTHER: Maternal ovaries not visualized. Reviewed, dictated and finalized at location A.
== END 2023-08-08 09:29 ==
PROVIDERS: PCP Obstetrics & Gynecology Gynecology; Visit Provider Obstetrics & Gynecology Gynecology
DX: O36.63X0 Maternal care for excessive fetal growth, third trimester, not applicable or unspecified (principal); Z3A.00 Weeks of gestation of pregnancy not specified
CPT/HCPCS: 76816

== ENCOUNTER 2023-08-23 13:24 | Outpatient (CLI) | payer OTHER, SELFPAY ==
--- NOTE | ~2023-08-23 | US_ITS ---
EXAMINATION: US OB follow up DATE: 08/23/2023 13:51 INDICATION: Expected size greater than expected for estimated gestational age during early thir d trimester TECHNIQUE: Real-time ultrasound of the pelvis was performed. The interpreting radiologist was not pre sent for the study. COMPARISON: None. FINDINGS: There is a single living fetus in vertex presentation. The placenta is posterior fundal and not low- lying. Normal cervical length of 4.8 cm. heart rate is 157 beats per minute (bpm). The amniotic fluid index is 22.7 cm, which is at the upper limits of normal (5th%-95%: 9.4-22.8 cm at 38 weeks e stimated gestational age). The following biometric data were obtained: BPD: 8.0 cm -> 32 weeks 2 days Head circumference: 28.1 cm -> 30 weeks 5 days Abdominal circumference: 26.3 cm -> 30 weeks 3 days Femur length: 5.2 cm -> 27 weeks 4 days These measurements are discordant with the femur length to biparietal diameter ratio, femur length to abdominal conference ratio and femur length to head circumference diameter ratio all below normal ra nge. Head circumference to abdominal circumference ratio: 1.07 (normal range 0.97-1.18). Estimated weight: 1432 g (+/-) 215 g or 3 lbs. 3 oz. (+/-) 8 oz. IMPRESSION: 1. Single living fetus in vertex presentation with heart rate of 157 bpm. 2. Amniotic fluid index of 20 2. Centimeter which is near the upper limits of normal. 3. Estimated weight is 90th percentile by Hadlock criteria when 11/14/2023 is used as the estima naresh date of delivery (DWAYNE). Please correlate with clinical information or earlier ultrasounds for mos t accurate DWAYNE. 4. Discordant biometric data with femur length to head circumference, biparietal diameter and abdomin al circumference ratios are all below normal range. Reviewed, dictated and finalized at location B. IMPRESSION: 1. Single living fetus in vertex presentation with heart rate of 157 bpm. 2. Amniotic fluid index of 20 2. Centimeter which is near the upper limits of n ormal. 3. Estimated weight is 90th percentile by Hadlock criteria when 11/14/2023 is used as the estimated date of delivery (DWAYNE). Please correlate with clinica l information or earlier ultrasounds for most accurate DWAYNE. 4. Discordant biometric data with femur length to head circumference, biparieta l diameter and abdominal circumference ratios are all below normal range.
== END 2023-08-23 13:25 ==
PROVIDERS: PCP Obstetrics & Gynecology Gynecology; Visit Provider Advanced Practice Midwife
DX: O36.63X0 Maternal care for excessive fetal growth, third trimester, not applicable or unspecified (principal); Z3A.00 Weeks of gestation of pregnancy not specified
CPT/HCPCS: 76816

== ENCOUNTER 2023-08-25 08:00 | Outpatient (RCR) | payer OTHER, SELFPAY ==
[2023-08-25 08:57] LABS: Hematocrit 35.1 % (37.0-47.0); Hemoglobin 11.7 g/dL (12.0-15.0)
[2023-08-25 09:09] LABS: Glucose Fasting 87 mg/dL
[2023-08-25 09:41] LABS: Vitamin D 25 Hydroxy 68.4 ng/mL
[2023-08-25 09:50] LABS: HIV 1/2 Ab P24 Ag Result Negative (Negative)
[2023-08-25 10:03] LABS: Glucose 1 Hour 184 mg/dL
[2023-08-25 10:39] LABS: Glucose 2 Hour 185 mg/dL
[2023-08-25 14:18] LABS: Rapid Plasma Reagin Non-Reactive (NonReactive)
[2023-08-25] MEDS: RHO(D) IMMUNE GLOBULIN 300 MCG/2 ML SYRINGE IM (15:32)
== END 2023-11-23 23:59 | disposition home or self-care (01) ==
LOC: ANHLAB 08:00
PROVIDERS: PCP Obstetrics & Gynecology Gynecology; Visit Provider Obstetrics & Gynecology Gynecology
DX: Z11.4 Encounter for screening for human immunodeficiency virus [HIV] (principal); Z11.3 Encounter for screening for infections with a predominantly sexual mode of transmission; Z29.13 Encounter for prophylactic Rho(D) immune globulin; O36.0190 Maternal care for anti-D [Rh] antibodies, unspecified trimester, not applicable or unspecified; E55.9 Vitamin D deficiency, unspecified; Z3A.00 Weeks of gestation of pregnancy not specified
CPT/HCPCS: 36415; 82306; 82951; 85014; 85018; 85461; 86592; 86703; 86850; 86900; 86901; 90384; 96372; G0432; J2790

== ENCOUNTER 2023-11-03 12:34 | Outpatient (RCR) | payer OTHER, SELFPAY ==
[2023-11-03 13:30] VITALS: BP 120/70; PULSE 86
== END 2024-01-01 09:57 | disposition home or self-care (01) ==
LOC: ANHOBOP 12:34
PROVIDERS: Visit Provider Obstetrics & Gynecology Gynecology
DX: O24.419 Gestational diabetes mellitus in pregnancy, unspecified control (principal)
CPT/HCPCS: 59025

== ENCOUNTER 2023-11-07 15:51 | Inpatient (IN) | payer OTHER, SELFPAY ==
[2023-11-07] VITALS (14 sets, daily range): BP systolic 116–131; BP diastolic 65–104; PULSE 73–93; TEMP 36.2–36.6; BMI 34.4
--- NOTE | ~2023-11-07 | US_ITS ---
EXAMINATION: US OB limited DATE: 11/07/2023 18:05 INDICATION: Presentation . TECHNIQUE: Real-time ultrasound of the pelvis was performed. COMPARISON: 08/23/2023 FINDINGS: There is a single living fetus in vertex presentation, longitudinal lie. The placenta is posterior/f undal, maternal right, and well distant from the cervix. heart rate is 144 bpm. The amniotic fl uid index is 16.7 cm, which is normal (5th to 95th percentile is 7.2 to 22.6 cm). IMPRESSION: Single living fetus in vertex presentation. Normal PIERO. Reviewed, dictated and finalized at location K.
--- NOTE | 2023-11-07 16:40 | LDADM ---
This patient, Karen Perez, was admitted to Labor/Delivery/Recovery 103 on 11/07/23 at 15:51. Plans for labor, pain management and were discussed with patient. Patient/family oriented to hospital policies and general routines including ID bracelet, bed and alarms, visiting hours, pain management, procedures, bathroom and other care routines, personal items, smoking policy, room service/diet and guest tray routines, infant security routines, and visiting hours. Patient/Family are encouraged to report perceived risks to care and to ask questions if they do not understand what they are told or what they should do. See OBIX for further documentation.
[2023-11-07 16:41] LABS: Basophils Percent Auto 0.2 % (0.2-1.2); Eosinophils Absolute Auto 0.1 K/mm3 (0-0.3); Eosinophils Percent Auto 1.1 % (0-4.4); Hematocrit 32.6 % (37.0-47.0); Hemoglobin 11.1 g/dL (12.0-15.0); Immature Granulocyte Absolute 0.04 K/mm3 (0.00-0.031); Immature Granulocyte Percent A 0.4 % (0-0.5); Lymphocytes Absolute Auto 1.56 K/mm3 (0.9-3.2); Mean Corpuscular Hemoglobin 28.9 pg (26-34); Mean Corpuscular Volume 84.9 fl (80-100); Mean Platelet Volume 10.1 fl (7.4-10.4); Monocytes Absolute Auto 0.6 K/mm3 (0.1-0.6); Monocytes Percent Auto 6.1 % (2.6-8.5); Neutrophils Absolute Auto 6.9 K/mm3 (1.3-6.7); Neutrophils Percent Auto 75.2 % (45.5-73.1); Platelet Count Result 250 k/mm3 (150-375); Red Blood Count 3.84 M/mm3 (4.2-5.4); Red Cell Distribution Width 14.2 % (11.5-14.5); White Blood Count 9.2 K/mm3 (4.5-10.0)
--- NOTE | 2023-11-07 17:20 | WPDANESEPP ---
Anes - Eval Pre Procedure Procedure: Labor epidural Date/Time: 11/07/23 17:20 Surgeon: Wanda Preop Diagnosis: Abdominal pain with contractions Pre Op Diagnosis: IOL Patient Data Age: 33 Gender: F Height: 1.73 m Weight: 102.7 kg Last Vital Signs Pulse 84 11/07/23 17:15 BP 117/74 11/07/23 17:15 O2 Del Method Room Air 11/07/23 16:40 Allergies Allergy/AdvReac Type Severity Reaction Status Date / Time No Known Allergies Allergy Verified 10/17/23 14:24 Home Medications Medication Instructions Recorded Confirmed Type aspirin 81 mg tablet 81 mg PO DAILY 10/17/23 10/17/23 History cholecalciferol (vitamin D3) 125 125 mcg PO DAILY 10/17/23 10/17/23 History mcg (5,000 unit) tablet insulin NPH isoph U-100 human 100 21 unit subcut HS 10/17/23 11/07/23 History unit/mL subcutaneous cartridge vits no.126-ferrous fum 1 tablet PO DAILY 10/17/23 10/17/23 History 28 mg iron-folic acid 800 mcg tablet (Classic ) Laboratory Tests 11/07/23 16:32 WBC 9.2 K/mm3 (4.5-10.0) RBC 3.84 L M/mm3 (4.2-5.4) Hgb 11.1 L g/dL (12.0-15.0) Hct 32.6 L % (37.0-47.0) MCV 84.9 fl (80-100) MCH 28.9 pg (26-34) MCHC 34.0 g/dl (32-36) RDW 14.2 % (11.5-14.5) Plt Count 250 k/mm3 (150-375) MPV 10.1 fl (7.4-10.4) Immature Gran % (Auto) 0.4 % (0-0.5) Neut % (Auto) 75.2 H % (45.5-73.1) Lymph % (Auto) 17.0 L % (18.3-44.2) [place] % (Auto) 6.1 % (2.6-8.5) Eos % (Auto) 1.1 % (0-4.4) Baso % (Auto) 0.2 % (0.2-1.2) Lymph # (Auto) 1.56 K/mm3 (0.9-3.2) [place] # (Auto) 0.6 K/mm3 (0.1-0.6) Eos # (Auto) 0.1 K/mm3 (0-0.3) Baso # (Auto) 0.0 K/mm3 (0.0-0.1) Abs Immat Gran (auto) 0.04 H K/mm3 (0.00-0.031) Absolute Neuts (auto) 6.9 H K/mm3 (1.3-6.7) Absolute Nucleated RBC 0.000 K/mm3 (0.0-0.012) Nucleated RBC % 0.0 % (0.0-0.2) RPR Pending HIV 1&2 Ab/P24 Ag 4thGn Pending Blood Type O Negative Antibody Screen Pending : gestational age HCG: positive Patient hx anesthesia problems: none Family hx anesthesia problems: none Results Review: All pre-operative results and documents have been reviewed as part of the pre-operative evaluation. [facility] Past Medical History Medical History Gestational diabetes Migraines (normal spontaneous vaginal delivery) Obesity and not yet delivered Family History Family History Father Heart attack Mother Cervical cancer Social History Social History Smoking status: Never smoker Substance use: never Do You Feel Safe in your Home?: Yes Lack of Transportation: No Lack of Food: Never True Current Housing: I Have Housing Concerned About Future Housing: No Difficulty Paying Gas/Electric Bills: No Difficulty Paying for Meds: No Currently Unemployed: No Education: Bachelor's Degree Difficulty w/ Childcare or Family Care: No Gender identity (if verbalized by the patient): Female Spiritual care concerns: No Exam Day of Procedure 11/07/23 17:20 Patient weight: obese Airway: Mallampati scale class II
[2023-11-07 17:47] LABS: HIV 1/2 Ab P24 Ag Result Negative (Negative)
[2023-11-07 18:37] LABS: Glucose Point of Care 100 mg/dl (65-105)
[2023-11-07 18:52] LABS: Rapid Plasma Reagin Non-Reactive (NonReactive)
--- NOTE | 2023-11-07 19:34 | WPDOBADMIT ---
Obstetrics - Admit Note Admission Note: record reviewed. No pertinent additions to the history and/or any subsequent changes in the physical findings that are not consistent with the expected course of the were found. Additions to the history and/or subsequent changes in the physical findings follow. None.
--- NOTE | 2023-11-07 19:34 | PM.OBPNLAB ---
Pain Control Date/time seen: 11/07/23 19:34 Assessment and Plan Comments: Pt with cervical change since 11/06/23 visit. Plan of care discussed with Dr. Perkins. Plan to start pitocin at midnight in hopes of daytime vaginal given LGA fetus.
[2023-11-07 21:05] LABS: Glucose Point of Care 147 mg/dl (65-105)
[2023-11-08] VITALS (92 sets, daily range): BP systolic 105–145; BP diastolic 57–112; PULSE 64–113; RESP 16–18; TEMP 36.4–37.3; O2SAT 93–100
[2023-11-08] MEDS: OXYTOCIN 30 UNITS/NS 500 ML 30 UNITS/500 ML BAG IV CONT (00:11)
[2023-11-08] MEDS: LACTATED RINGERS 1,000 ML 125 ML IV CONT ×2 (00:11→04:25)
[2023-11-08 01:47] LABS: Glucose Point of Care 99 mg/dl (65-105)
--- NOTE | 2023-11-08 02:59 | PM.OBPNLAB ---
Pain Control Date/time seen: 11/08/23 02:55 Pain control: tolerating well Pelvic Exam Dilation (cm): 3 Effacement (%): 50 station: -3 Amniotic membrane status: Bulging Comments: head well applied to cervix. Contractions Monitor mode: External Contraction pattern: Irregular Contraction phase: Contraction Contraction intensity: Moderate Status status: Category l Assessment and Plan Assessment: induction ongoing Comments: CNM to bedside. Discussed plan of care and option for amniotomy. Discussed risks, benefits, and expectations of breaking water. Patient is agreeable. Amniotomy performed and there was a moderate return of clear amniotic fluid. Patient tolerated procedure well.
[2023-11-08 05:08] LABS: Glucose Point of Care 89 mg/dl (65-105)
--- NOTE | 2023-11-08 07:18 | P.PCNOB_ITS ---
OB - Vaginal Delivery Note Procedure Delivery date: 11/08/23 Events: Gestational Diabetes (GDMA2) Induction method: Per Pitocin Protocol Delivery augmentation: Rupture of Membranes Delivery monitor: External FHT and External Uterine Route of delivery: Episiotomy description: None Laceration Description: Periurethral (superficial, no repair) Specimen: No Quantitative Blood Loss (ml): 125 Anesthesia type: Epidural Disposition: Floor Complications: No immediate complications Narrative: Karen Induction of labor secondary to gestational diabetes. Induction was started with Pitocin and amniotomy was performed. She made quick change to complete dilation. She pushed very well with contractions and quickly brought the head to a complete crown. She delivered the head over intact perineum after which excellent restitution was observed. There was quick delivery of the anterior shoulder followed by the posterior shoulder and the remainder of the . The infant was placed on maternal abdomen and dried and stimulated by the nursery staff. After 1 minute of life, the cord was doubly clamped and cut. Cord blood, cord gases, and cord segment were obtained. The placenta delivered spontaneously and there was excellent uterine tone. The vulva and vaginal mucosa were inspected and no repair was required. all delivery counts correct. Mother baby skin to skin in the delivery room [place] Date of : 11/08/23 Time of : 06:55 Gestational Age by Date: 39 gender: Male presentation: vertex position: Left Occiput Anterior Placenta delivery description: Spontaneous and Normal Configuration Cord Vessel Description: 3 Vessels and Delayed Cord Clamping score one minute: 8 score five minutes: 9
[2023-11-08] MEDS: OXYTOCIN 30 UNITS/NS 500 ML 30 UNITS/500 ML BAG 125 UNITS IV CONT (07:37)
[2023-11-08] MEDS: WITCH HAZEL 40 PADS 1 PAD TOPICAL (09:43)
--- NOTE | 2023-11-08 10:05 | OBPPTRN ---
Patient transferred to post room #292 via ( wheelchair ). Support person present. Oriented to unit, room, information board, rooming in, admission packet and security measures. Patient verbalizes understanding.
--- NOTE | 2023-11-08 10:55 | PC.NURSE ---
Introductions were made, then consulted with patient to assess needs related to . Mother led the conversation with her?plans to feed?her infant and the?experience so far. Encouraged understanding of the benefits of skin to skin, stimulating with massage touch, changing positions to encourage wakefulness, how to watch for early feeding cues, responsive feeding, feeding on demand (aiming for 8-12 times in 24 hours, about every 2-3 hours). Mother shares that she breastfed her 3 year old and it went well. Baby is sleepy and just had a 48 glucose check. Baby opens his mouth once or twice but never latched for us. Advised mother wait another 30 minutes and try again. Mother works well with her with encouragement and education. number written on the communication board. Parents voiced understanding of information, demonstrated learning and will call if there is a request for assistance. Reported to the Primary RN.
[2023-11-08] MEDS: CHOLECALCIFEROL 5,000 UNITS TABLET 5000 UNITS BY MOUTH (15:37)
[2023-11-08] MEDS: IBUPROFEN 600 MG TABLET PO (15:37)
[2023-11-08] MEDS: MULTIVIT/MIN/PREN/FOL AC/IRON TABLET 1 TAB PO (15:38)
[2023-11-08] MEDS: ACETAMINOPHEN 325 MG TABLET 650 MG PO (20:21)
[2023-11-09 04:09] VITALS: BP 121/83; PULSE 64; RESP 16; TEMP 36.8; O2SAT 99
[2023-11-09 04:32] LABS: Hematocrit 36.1 % (37.0-47.0); Hemoglobin 11.5 g/dL (12.0-15.0)
[2023-11-09 08:08] VITALS: BP 127/92; PULSE 74; RESP 18; TEMP 36.7; O2SAT 100
--- NOTE | 2023-11-09 08:29 | PM.OBPNVD ---
OB - PN: Subj Subjective Date/time seen: 11/09/23 08:29 Patient comments: no complaints and pain well controlled baby status: doing well OB - PN: Obj Data Labs 11/09/23 04:02 Labs: Laboratory Results - last 24 hr 11/09/23 04:02 Hgb 11.5 L Hct 36.1 L Blood Type O Negative Antibody Screen Positive Antibody Identification Cancelled Antigen Identification Cancelled ELIGIO, IgG Interpret Neg ELIGIO, Poly Interpret Not Performed ELIGIO, Complement Interp Negative Screen Negative Baby's Blood Type A pos Baby's ELIGIO Positive Doses of RhIg Required 1 OB - PN A/P Plan day: 1 Plan: routine care Time Spent With Patient Time: Total time spent is greater than 50% in coordination of care (as documented) at patient's floor/unit and/or counseling patient: Time with patient: less than 15 minutes Exam Const: General: cooperative, healthy appearing and comfortable Nutritional Appearance: average body habitus Orientation/consciousness: oriented to person, oriented to place and oriented to time Resp: Effort & Inspection: normal respiratory effort Cardio: Rate: regular rate Rhythm: regular rhythm Heart sounds: S1 normal heart sound present and S2 normal heart sound present GI: Inspection: normal to inspection
[2023-11-09] MEDS: IBUPROFEN 600 MG TABLET PO ×2 (09:21→17:32)
[2023-11-09] MEDS: DOCUSATE SODIUM 100 MG CAPSULE PO ×2 (09:22→17:32)
[2023-11-09] MEDS: WITCH HAZEL 40 PADS 1 PAD TOPICAL (09:22)
[2023-11-09] MEDS: MULTIVIT/MIN/PREN/FOL AC/IRON TABLET 1 TAB PO (09:22)
[2023-11-09] MEDS: BENZOCAINE 20% AER SPR (*SP) 56 GM CAN 1 SPRAY TOPICAL (09:22)
[2023-11-09] MEDS: CHOLECALCIFEROL 5,000 UNITS TABLET 5000 UNITS BY MOUTH (09:22)
--- NOTE | 2023-11-09 10:55 | WPDANLDPN2 ---
Anes-Prog Note L&D Date/Time: 11/09/23 10:55 Comfortable throughout: labor and delivery Neuraxial method: epidural Epidural/Spinal procedure site: clean & non-tender Neuro status: Neuro function grossly intact. Cardiovascular status: normal Respiratory status: normal Airway patency: baseline Mental status: baseline Post-Op hydration status: normal Vital Signs: Last Vital Signs Temp 36.7 C 11/09/23 08:08 Pulse 74 11/09/23 08:08 Resp 18 11/09/23 08:08 BP 127/92 H 11/09/23 08:08 Pulse Ox 100 11/09/23 08:08 O2 Del Method Room Air 11/09/23 07:30 Pain score (VAS): 03/08 Post-procedural complaints: none Patient feedback: Patient satisfied with anesthetic care.
--- NOTE | 2023-11-09 16:00 | PC.NURSE ---
PT introductions made and plan of care discussed per post , pain management, breast feeding, daily care activities. PT and spouse both recipients of such instructions and no barriers to learning identified at this time. PT received such instructions per one to one discussion, mom baby care guide and demonstrations. PT verbalized understanding of such care.
--- NOTE | 2023-11-09 17:23 | PC.NURSE ---
1710. Mother verbalizes she is able to independently latch infant with appropriate positioning and alignment. She denies any nipple discomfort and is responsively . is currently meeting outcomes for weight, output, jaundice, blood sugar and feeding frequencies of 8-12 times in 24 hours. Mother declines any additional assistance or education at this time. Mother is encouraged to call for assistance if her doesn?t latch, pain with latching, questions or concerns. Mother voiced understanding of information shared along with the mom/baby guide for an additional resource. Reported to the Primary RN.
[2023-11-09] MEDS: RHO(D) IMMUNE GLOBULIN 300 MCG/2 ML SYRINGE IM (17:33)
[2023-11-09 20:45] VITALS: BP 123/72; PULSE 77; RESP 16; TEMP 36.9; O2SAT 98
--- NOTE | 2023-11-10 07:25 | PM.OBPNVD ---
OB - PN: Subj Subjective Date/time seen: 11/10/23 07:10 Interval history: Post Day 2 from . Doing well. Urinating without difficulty. Denies passing any large clots. Denies dizziness with ambulating. Tolerating po food and fluids. Bonding with . Patient comments: pain well controlled baby status: doing well and nursing well [place] feeding status: exclusively breast feeding OB - PN: Obj Data Labs 11/09/23 04:02 Labs: Laboratory Results - last 24 hr 11/09/23 04:02 Blood Type O Negative Antibody Screen Positive Antibody Identification Cancelled Antigen Identification Cancelled ELIGIO, IgG Interpret Neg ELIGIO, Complement Interp Negative Screen Negative Baby's Blood Type A pos Baby's ELIGIO Positive Doses of RhIg Required 1 OB - PN A/P Assessment and Plan (1) [facility] (normal spontaneous vaginal delivery): Code(s): O80 - Encounter for full-term uncomplicated delivery Status: Acute (2) Patient is a currently breast-feeding mother: Code(s): Z39.1 - Encounter for care and examination of lactating mother Status: Acute Plan day: 2 Plan: discharge home Time Spent With Patient Time: Total time spent is greater than 50% in coordination of care (as documented) at patient's floor/unit and/or counseling patient: Review of Systems Review of Systems: All systems reviewed & are unremarkable except as noted in HPI and below Exam Narrative: Alert and oriented. Mood is pleasant and cooperative. Perineum with minimal edema. Fundus firm and below umbilicus. Const: General: cooperative, healthy appearing, no acute distress and alert Orientation/consciousness: patient oriented x3 Limitations: no limitations Resp: Effort & Inspection: normal respiratory effort and able to speak in complete sentences Cardio: Rate: regular rate GI: Inspection: normal to inspection : General: Yes bladder normal to palpation External Female Exam: other (lochia WNL) Bimanual exam- vagina & uterus: bladder normal to palpation Other: Fundus firm and below U Skin: General skin exam: normal color and no rashes or lesions noted Neuro: General: patient oriented x3 and moves all extremities Cognition (Neuro): normal cognition Extrem: General: normal to inspection and no calf tenderness Psych: Appearance: grossly normal Mental Status: mental status grossly normal Affect: normal affect Thought process: Normal thought process present
--- NOTE | 2023-11-10 07:33 | PM.OBDSVD ---
DS: Admitting Diagnosis Discharge Date 11/10/23 Admitting Diagnosis IOL [id number] DS: Discharge Diagnosis Discharge Diagnosis (1) (normal spontaneous vaginal delivery): Code(s): O80 - Encounter for full-term uncomplicated delivery Status: Acute (2) Patient is a currently breast-feeding mother: Code(s): Z39.1 - Encounter for care and examination of lactating mother Status: Acute OB - DS: Summary Hospital Course Hospital Course: Uncomplicated OB Procedures : NST and Ultrasound OB Procedures Intrapartum: Spontaneous Vag Delivery OB Procedures: : None Peripartum Data Delivery Method: Natural Vaginal Laceration Description: Periurethral (superficial, no repair) Episiotomy description: None complications: none Status at Discharge Functional status at discharge: independent ambulation Overall status at discharge: patient is progressing back to baseline Time Spent with Patient Time attestation: Total time spent providing and/or coordinating discharge services: Exam Narrative: Alert and oriented. Mood is pleasant and cooperative. Perineum with minimal edema. Fundus firm and below umbilicus. Const: General: cooperative, healthy appearing, no acute distress and alert Orientation/consciousness: patient oriented x3 Limitations: no limitations Resp: Effort & Inspection: normal respiratory effort and able to speak in complete sentences Cardio: Rate: regular rate GI: Inspection: normal to inspection : General: Yes bladder normal to palpation External Female Exam: other (lochia WNL) Bimanual exam- vagina & uterus: bladder normal to palpation Other: Fundus firm and below U Skin: General skin exam: normal color and no rashes or lesions noted Neuro: General: patient oriented x3 and moves all extremities Cognition (Neuro): normal cognition Extrem: General: normal to inspection and no calf tenderness Psych: Appearance: grossly normal Mental Status: mental status grossly normal Affect: normal affect Thought process: Normal thought process present DS: Data Data Completed and Pending Labs on day of discharge: Labs from last 24 hours 11/09/23 04:02 Blood Type O Negative Antibody Screen Positive Antibody Identification Cancelled Antigen Identification Cancelled ELIGIO, IgG Interpret Neg ELIGIO, Complement Interp Negative Screen Negative Baby's Blood Type A pos Baby's ELIGIO Positive Doses of RhIg Required 1 Discharge Plan Discharge Attending physician on discharge: Martine Decker Discharging Clinician: Linh Conklin Anticipated Discharge Date/Time: 11/10/23 07:27 Patient Disposition: Home, Self-Care Activity: may shower and pelvic rest Diet: as tolerated Wound Care Instructions: follow printed instructions Discharge Instructions: Continue taking your vitamin and any other supplements as previously directed (Examples: Iron, Vitamin D). You may take Tylenol 1000mg over the counter every 6 hours as needed for pain. Do not exceed 4000mg of Tylenol daily. You may continue using tucks pads and dermoplast spray if needed for a few more days. Depression Notify provider for signs or symptoms. These may include- Feelings: Feeling anxious, angry, hopeless, guilt, or loss of interest/pleasure in activities you normally enjoy. Mood swings or panic attacks. General: Extreme fatigue, loss of your appetite, feeling restless. Crying excessively, irritability, insomnia Psychological: Lack of concentration, depression or fear, unwanted thoughts Weight: Significant gain or loss Safety: Thoughts of harming yourself or your baby. Patient Instructions: Antibiotic Form Stand Alone Forms: General Discharge Information Follow-up/Referrals: Linh Conklin CNM [Certified Nurse [employer]] - (6 weeks ) Discharge Medicatio
[2023-11-10 08:00] VITALS: BP 124/71; PULSE 71; RESP 16; TEMP 36.7; O2SAT 98
[2023-11-10] MEDS: MULTIVIT/MIN/PREN/FOL AC/IRON TABLET 1 TAB PO (08:12)
[2023-11-10] MEDS: DOCUSATE SODIUM 100 MG CAPSULE PO (08:12)
--- NOTE | 2023-11-10 09:45 | PC.NURSE ---
Consulted with mother concerning needs and she shared her ability to independently latch infant optimally without pain. Mother is feeding appropriately for growth of and understands stimulating to eat if needed. Infant has had appropriate feedings in the last 24 hours meets the outcomes for weight, output, blood sugar and jaundice at this time. Reinforced understanding of milk production, transition of milk, signs of adequate intake, transition of stool, prevention/relief of engorgement, plugged ducts, mastitis, responsive watching for feeding cues, the different methods of stimulating to breastfeed 1-3 hours after the start of the last feeding, community resources, and when to call a provider using the resource of the feeding sheet along with the mom and baby guide. Mother voiced understanding of the information shared, is confident to continue effectively her infant at home, when to call for assistance, denies any additional assistance or education at this time. Reported to the Primary RN.
[2023-11-11 10:28] VITALS: BP 130/83; PULSE 77; RESP 18; TEMP 36.8; O2SAT 98
== END 2023-11-10 14:00 | disposition home or self-care (01) | DRG 807 ==
LOC: ANHLDR 11-08 07:24 → ANHOB2 11-08 10:52
PROVIDERS: Admitting Provider Obstetrics & Gynecology Gynecology; Referring Provider Advanced Practice Midwife; Visit Provider Obstetrics & Gynecology Gynecology
DX: O24.429 Gestational diabetes mellitus in childbirth, unspecified control (principal); Z37.0 Single live birth; O71.82 Other specified trauma to perineum and vulva; Z3A.39 39 weeks gestation of pregnancy
CPT/HCPCS: 36415; 76815; 82948; 85014; 85018; 85025; 85461; 86592; 86703; 86850; 86880; 86900; 86901; 86902; 90384; A9270; G0432; J2590; J2790; J2795; J7120